=== PATIENT | female | born 1945 | race Hispanic/Latino ===

== ENCOUNTER 2018-03-23 13:12 | Outpatient (CLI) | payer OTHER | END 2018-03-23 13:13 | disposition home or self-care (01) | LOC: LABHHL 13:12 | PROVIDERS: ATTEND Surgery | DX: N63.20 Unspecified lump in the left breast, unspecified quadrant (principal) | CPT/HCPCS: 88305; 88361 ==

== ENCOUNTER 2018-04-16 10:22 | Outpatient (CLI) | payer MEDICARE ==
--- NOTE | 2018-04-17 08:56 | Magnetic Resonance Report ---
BILATERAL BREAST MRI WITHOUT AND WITH CONTRAST: 04/16/18 10:22:00 CLINICAL: Newly diagnosed left breast cancer. Status post left ultrasound guided needle biopsy on 03/23/18 with pathologic diagnosis of invasive carcinoma NOS Christy grade III. COMPARISON:03/07/18 and 03/19/18 outside mammograms. TECHNIQUE: Axial 1.0-mm T1 without, axial high resolution 2.0-mm T2 and axial 1.0-mm dynamic Vibrant high-resolution postcontrast T1 fat saturation sequences on a 1.5 Merline magnet. The examination was performed with an 8 channel dedicated Sentinelle breast coil. Post processing with CAD and subtraction was performed on an [id number] workstation. 16.0 cc of Multihance was injected without incident for the contrast portion of the exam. Consent was obtained prior to the administration of the contrast. FINDINGS: Right: Minimal background parenchymal enhancement. No mass or suspicious enhancement. No suspicious right axillary or right internal mammary lymph nodes. Left: Minimal background parenchymal enhancement. The known cancer with a hydro-anila biopsy clip is an irregular enhancing mass at 5 o'clock 5.8 cm from the nipple measuring 11.8 x 9.2 x 6.9 mm. It demonstrates heterogeneous enhancement with mixed kinetics, 280% peak enhancement, 12% type I persistent 40% type II plateau and 48% type III washout. No other mass or suspicious enhancement. No suspicious left axillary or left internal mammary lymph nodes. IMPRESSION: Known left breast cancer and no additional suspicious lesion of either breast. No suspicious lymph nodes. RIGHT BI-RADS 1 -- Negative LEFT BI-RADS 6 -- Known Cancer
== END 2018-04-16 10:23 | disposition home or self-care (01) ==
LOC: SPVIMAG 10:22
PROVIDERS: ATTEND Surgery
DX: C50.912 Malignant neoplasm of unspecified site of left female breast (principal); I10 Essential (primary) hypertension; F41.9 Anxiety disorder, unspecified; Z90.49 Acquired absence of other specified parts of digestive tract; Z98.51 Tubal ligation status; Z95.1 Presence of aortocoronary bypass graft
CPT/HCPCS: A9577; C8908; 77059

== ENCOUNTER 2018-04-24 13:09 | Outpatient (CLI) | payer MEDICARE, OTHER ==
--- NOTE | 2018-04-24 18:53 | Cat Scan Report ---
FINAL REPORT PROCEDURE: CT CHEST WO CON TECHNIQUE: Computerized axial tomography of the chest was performed without contrast material. This study is performed without intravenous contrast and the sensitivity for pathology, including neoplasms, adenopathy, abscess, pulmonary embolism and aortic dissection, is reduced. HISTORY: LEFT BREAST CANCER COMPARISON: No prior studies are available for comparison. TECHNICAL QUALITY: Satisfactory. FINDINGS: Pericardium: No evidence of pericardial effusion. Thoracic aorta: Atherosclerotic changes are visualized. No aneurysm is seen. Coronary arteries: Are partially calcified indicating atherosclerotic disease. Mediastinum and hilar regions: Nonspecific subcentimeter lymph nodes are visualized. No pathologically enlarged lymph nodes or masses are identified. Sternotomy wires are visualized. There has been previous thoracotomy. Moderate-size hiatal hernia is present. Lung Ziegler: Interstitial markings in the periphery minimally increased. I suspect there is minimal peripheral fibrosis. No acute infiltrates, masses or effusions are identified. Upper abdomen: No acute or focal abnormalities are seen. Gallbladder is surgically absent. Other: No suspicious bony lesions are identified. IMPRESSION: Prior thoracotomy. Mild peripheral fibrosis suspected. No infiltrates or masses are identified. Atherosclerosis coronary arteries. Moderate size hiatal hernia visualized..
--- NOTE | 2018-04-24 19:18 | Cat Scan Report ---
FINAL REPORT PROCEDURE: CT NECK WO CON TECHNIQUE: Computerized tomography of the soft tissue neck was performed without contrast material. This study is performed without intravascular contrast material and its sensitivity for pathology, including neoplasms, inflammation, abscess, free fluid, thrombosis, and arterial dissection, is reduced compared with a contrast enhanced study. HISTORY: LEFT BREAST CANCER COMPARISON: No prior studies are available for comparison. FINDINGS: Calcifications are visualized in the carotid arteries bilaterally indicating atherosclerotic disease. The thyroid gland is not clearly visualized and may be surgically absent or markedly atrophy. The larynx showed no abnormalities. The epiglottis is normal in appearance. Prevertebral soft tissues are unremarkable. The submandibular glands and parotid glands are unremarkable. Parapharyngeal spaces are symmetric. Nonspecific subcentimeter lymph nodes are scattered in the right and left side of the neck. These do not appear to be pathologically enlarged. Degenerative disc changes are visualized in the cervical spine. There is posterior osteophytic spurring overlying a disc bulge C6-C7 greater to the right than the left. This obscures the anterior epidural space and may be resting on the anterior surface of the cord without cord without deformity. At the C5-C6 level there is diffuse posterior osteophytic spurring overlying a disc bulge obscuring the anterior epidural space. I cannot exclude minimal diffuse cord compression. There is mild posterior osteophytic spurring at the C4-5 level slightly greater to the right than the left without cord compression or spinal stenosis. There is mild to moderate facet arthritis greater on the right than the left. No definite lytic or blastic lesions are seen that would suggest metastatic disease. IMPRESSION: Atherosclerosis carotid arteries. Thyroid gland is not visualized and may have been previously resected or is markedly atrophied. No pathologically enlarged lymph nodes are identified. Degenerative disc changes are present in the cervical spine greatest at C5-C6-C6-C7 as described above. No definite lytic or blastic lesions are identified.
== END 2018-04-24 13:10 | disposition home or self-care (01) ==
LOC: CT 13:09
PROVIDERS: ATTEND Radiology Radiation Oncology
DX: C50.512 Malignant neoplasm of lower-outer quadrant of left female breast (principal); I65.29 Occlusion and stenosis of unspecified carotid artery; M50.323 Other cervical disc degeneration at C6-C7 level; I10 Essential (primary) hypertension; F41.9 Anxiety disorder, unspecified
CPT/HCPCS: 70490; 71250

== ENCOUNTER 2018-05-07 07:02 | Day surgery (SDC) | payer MEDICARE, OTHER ==
[2018-05-07] MEDS ORDERED: XYLOCAINE 1% 20 mL ONE ×2 (08:23→09:56)
[2018-05-07 08:26] LABS: Basophils % (Auto) 0.6 % (0.0-1.8); Eosinophils # (Auto) 0.2 K/mm3 (0.0-0.4); Eosinophils % (Auto) 2.8 % (0.0-4.3); Hematocrit 35.7 % (30.3-42.9); Hemoglobin 11.8 gm/dl (10.1-14.3); Lymphocytes % (Auto) 15.4 % (13.4-35.0); Mean Corpuscular HGB Conc 33 % (30-34); Mean Corpuscular Hemoglobin 28 pg (28-32); Mean Corpuscular Volume 84 fl (79-97); Monocytes # (Auto) 0.5 K/mm3 (0.0-0.8); Monocytes % (Auto) 7.5 % (0.0-7.3); Platelet Count 192 K/mm3 (140-440); Red Blood Count 4.24 M/mm3 (3.65-5.03); Red Cell Distribution Width 15.9 % (13.2-15.2)
[2018-05-07] MEDS ORDERED: XYLOCAINE MPF 2% ONE (08:32)
[2018-05-07] MEDS ORDERED: ZOFRAN ONE (08:32)
[2018-05-07] MEDS ORDERED: DILAUDID ONE (08:32)
[2018-05-07] MEDS ORDERED: DIPRIVAN 10 MG/ML IV ONE (08:33)
[2018-05-07 08:40] LABS: Alanine Aminotransferase 23 units/L (7-56); BUN/Creatinine Ratio 26; Blood Urea Nitrogen 18 mg/dL (7-17); Calcium 9.2 mg/dL (8.4-10.2); Hemolysis Index 5
[2018-05-07] MEDS ORDERED: DILAUDID IV PRN (08:53)
[2018-05-07] MEDS ORDERED: ZOFRAN IV PRN (08:53)
--- NOTE | 2018-05-07 08:53 | Procedure Note ---
Date of procedure: 05/07/18 Pre-op diagnosis: lt breast lesion Post-op diagnosis: same Procedure: needle loc Findings: bx marker Anesthesia: local Surgeon: MYRANDA REGAN Estimated blood loss: none Pathology: none Condition: stable Disposition: same day
--- NOTE | 2018-05-07 08:54 | Anesthesia Day of Surgery ---
Anesthesia Day of Surgery - Day of Surgery Patient Examined: Yes Patient H&P Reviewed: Yes Patient is NPO: Yes
--- NOTE | 2018-05-07 08:55 | Anesthesia Consultation ---
Anesthesia Consult and Med Hx Date of service: 05/07/18 - Airway Anesthetic Teeth Evaluation: Good ROM Head & Neck: Adequate Mental/Hyoid Distance: Adequate Mallampati Class: Class II Intubation Access Assessment: Probably Good - Pulmonary Exam CTA: Yes - Cardiac Exam Cardiac Exam: RRR - Pre-Operative Health Status ASA Pre-Surgery Classification: ASA3 Proposed Anesthetic Plan: General (Ga with LMA ok, HTN, DM, GERD- controlled) - Pulmonary Hx Smoking: No - Cardiovascular System Hx Hypertension: Yes (21 YEARS) Hx Heart Attack/AMI: Yes (2001) Hx Valvular Heart Disease: Yes Hx Heart Murmur: Yes - Central Nervous System Hx Psychiatric Problems: No - Endocrine Hx Hypothyroidism: Yes - Other Systems Hx Alcohol Use: No Hx Substance Use: No Hx Cancer: Yes
[2018-05-07] MEDS ORDERED: VERSED IV NR (09:00)
[2018-05-07] MEDS ORDERED: LACTATED RINGERS 1,000 ML IV SCH (09:00)
[2018-05-07] MEDS ORDERED: ePHEDrine SULFATE ONE (09:03)
--- NOTE | 2018-05-07 09:44 | Mammography Report ---
Left breast needle localization: The patient presents with a marker in the inferolateral left breast. A lateral approach was utilized using mammographic grid technique. The skin was cleansed and 1% lidocaine used for local anesthesia. A 3 cm Jean Baptiste needle was placed with its position confirmed with mammography. A wire was then introduced with removal of the needle and additional mammography to confirm positioning of the wire. No complications encountered.
[2018-05-07] MEDS ORDERED: MARCAINE 0.5% 30 ML INFILTRATI ONE (09:46)
[2018-05-07] MEDS ORDERED: DECADRON ONE ×2 (09:47→12:37)
[2018-05-07] MEDS ORDERED: MARCAINE 0.25% INFILTRATI ONE ×2 (09:56→11:42)
[2018-05-07] MEDS ORDERED: ANCEF/STERILE WATER 2 GM/20 ML IV NR (10:00)
--- NOTE | 2018-05-07 10:22 | Short Stay Summary ---
Short Stay Documentation Date of service: 05/07/18 - History H&P: obtained from office - Allergies and Medications Current Medications: Allergies metronidazole Allergy (Verified 05/04/18 13:10) CAMPOS clarithromycin [From Biaxin] Adverse Reaction (Verified 05/04/18 13:10) Swelling clopidogrel bisulfate [From Plavix] Adverse Reaction (Verified 05/04/18 13:10) Itching Home Medications Medication Instructions Recorded Confirmed Last Taken Type Insulin Glargine,Hum.rec.anlog 25 unit SQ QHS 05/04/18 05/07/18 05/06/18 21:30 History [Basaglar Kwikpen U-100] Levothyroxine [Synthroid] 112 mcg PO QAM 05/04/18 05/07/18 05/06/18 History Nebivolol HCl [Bystolic] 20 mg PO DAILY 05/04/18 05/07/18 05/06/18 21:30 History Pantoprazole [Protonix TAB] 40 mg PO DAILY 05/04/18 05/04/18 05/07/18 06:30 History Sertraline [Zoloft] 100 mg PO QDAY 05/04/18 05/04/18 05/07/18 06:30 History Simvastatin [Zocor] 40 mg PO DAILY 05/04/18 05/07/18 05/06/18 History Valsartan [Diovan] 160 mg PO QDAY 05/04/18 05/04/18 05/07/18 06:30 History amLODIPine [Norvasc] 5 mg PO DAILY 05/04/18 05/04/18 05/07/18 06:30 History glipiZIDE [Glucotrol] 10 mg PO BID 05/04/18 05/07/18 05/06/18 History metFORMIN [Glucophage] 500 mg PO BID 05/04/18 05/07/18 05/06/18 History Active Medications Cefazolin Sodium (Ancef/Sterile Water 2 Gm/20 Ml) 2 gm IV PREOP NR Stop: 05/07/18 23:59 Hydromorphone HCl (Dilaudid) 0.5 mg IV Q10MIN PRN PRN Reason: Pain , Severe (7-10) Stop: 05/07/18 18:00 Lactated Ringer's (Lactated Ringers) 1,000 mls @ 100 mls/hr IV DIRECT RAFAELA Last Admin: 05/07/18 09:10 Dose: 100 mls/hr Midazolam HCl (Versed) 2 mg IV PREOP NR Stop: 05/07/18 23:59 Ondansetron HCl (Zofran) 4 mg IV ONCE PRN PRN Reason: Nausea And Vomiting Stop: 05/07/18 18:00 - Brief post op/procedure progress note Date of procedure: 05/07/18 Pre-op diagnosis: Left breast cancer of the lower outer quadrant Post-op diagnosis: same Procedure: Left needle localization partial mastectomy with SLNB Anesthesia: GETA Findings: Left partial mastectomy with clip present; 1 SLN Surgeon: CAROLINE BENOIT Estimated blood loss: minimal Pathology: list (left partial mastectomy, SLNx1) Specimen disposition: to lab Condition: stable - Disposition Condition at discharge: Good Disposition: DC-01 TO HOME OR SELFCARE Short Stay Discharge Plan Activity: other (no heavy lifting) Diet: regular Wound: other (keep incision clean and dry; may shower in 24 hours; no baths, pools or lakes; do not rub or scrub incision; wear breast binder) Follow up with: FORTINO LOPEZ MD [Primary Care Provider] - 7 Days CAROLINE BENOIT MD [Staff Physician] - 7 Days Prescriptions: HYDROcodone/APAP 5-325 [[place] 5/325] 1 each PO Q6HR PRN #30 tablet PRN Reason: Pain
[2018-05-07] MEDS ORDERED: NACL P/F VIAL (10 ML) 10 ML ONE (10:47)
[2018-05-07] MEDS ORDERED: METHYLENE BLUE ONE (10:47)
[2018-05-07] MEDS ORDERED: WATER FOR IRRIG STERILE IR ONE (11:41)
[2018-05-07] MEDS ORDERED: XYLOCAINE 1% 20 mL INFILTRATI ONE (11:41)
[2018-05-07] MEDS ORDERED: ANTIBIOTIC OINT TP ONE ×2 (12:17→15:05)
--- NOTE | 2018-05-07 12:48 | Operative Report ---
Operative Report Operative Report: Date of Service: May 07, 2018 Preoperative diagnosis: Left breast cancer of the lower outer quadrant Postoperative diagnosis: Same Procedure: Left needle localization partial mastectomy of the upper outer quadrant and SLNB Surgeon: Kimi Elder MD Anesthesia: General Findings: Left wire and clip present within radiograph specimen; x1 SLN Complications: None EBL: Minimal Disposition: PACU in good condition Indications for operative procedure: This is a 72year old lady with newly diagnosed left breast cancer of the lower outer quadrant, Stage I [id number] ER/ ME positive. Recommendations are to proceed with left breast conservation. Patient wished to proceed with breast conservation. She has a history of lymphoma and treated with chemoradiation therapy. She met with medical oncology and radiation oncology as well. Procedure in detail: The patient was taken to radiology for wire placement for localization known area of cancer. Patient was then taken to the operating room. Gen. anesthesia was administered. The left nipple was injected with radioisotope and 1 cc of saline with blue dye. The left breast and axilla were prepped and draped in the normal sterile operative fashion. The wire was identified. Timeout was performed. Gamma probe was inserted into the axilla. Axillary tissues were slightly fibrotic and pale-history radiation. The area of hot spot was identified. A left axillary incision was made with a 15 blade knife with dissection taken down to the subcutaneous tissues. The axillary fascia was opened with the Bovie cautery. 1 SLN was identified. All remaining counts were less than 10% of the highest count. Lymph node was sent to pathology for permanent processing. Hemostasis was obtained in the left axillary cavity. Axillary cavity was appropriately irrigated and suctioned. The axillary cavity was anesthetized with 1% lidocaine mixed with quarter percent Marcaine. Hemostasis was noted. Axillary fascia was approximated and closed using interrupted 3-0 Vicryl and the skin brought together and closed using a running 4-0 Monocryl followed by skin affix. Attention was then taken towards the left breast. A lower outer breast incision was made with a 15 blade knife and dissection taken down to subcutaneous tissues. First began raising of the lateral flap with removal of the wire from the skin with dissection take down to the pectoralis muscle, followed by raising of the medial flap, superior flap and inferior flap with all flaps taken down to the pectoralis muscle. Ultrasound was used to verify area of cancer. The breast area of concern was appropriately removed posteriorly from the pectoralis muscle with the aid of the Bovie cautery. The wire was not encountered. Specimen was marked and then sent to pathology and radiology; radiograph specimen with wire and clip present. Breast cavity was irrigated and hemostasis was obtained. The breast cavity was anesthetized with 1% lidocaine mixed with quarter percent Marcaine. The posterior deep breast tissues were approximated and closed using interrupted 3-0 Vicryl. The subcutaneous tissues were approximated and closed using interrupted 3-0 Vicryl followed by closing of the skin with a running 4-0 Monocryl and skin affix. The patient tolerated surgery very well and she was awaken from anesthesia without any complication and transported to PACU in good condition.
--- NOTE | 2018-05-07 15:09 | Mammography Report ---
Operative specimen mammogram: A single tissue specimen is submitted that contains the targeted marker and localizing wire.
[2018-05-07 17:10] VITALS: BP 94/61
== END 2018-05-07 15:20 | disposition home or self-care (01) ==
LOC: OR 07:02
PROVIDERS: ATTEND Surgery
DX: D05.12 Intraductal carcinoma in situ of left breast (principal); I10 Essential (primary) hypertension; E78.00 Pure hypercholesterolemia, unspecified; K21.9 Gastro-esophageal reflux disease without esophagitis; E03.9 Hypothyroidism, unspecified; I25.2 Old myocardial infarction; Z79.4 Long term (current) use of insulin; Z79.899 Other long term (current) drug therapy; Z88.8 Allergy status to other drugs, medicaments and biological substances; Z88.1 Allergy status to other antibiotic agents; Z95.1 Presence of aortocoronary bypass graft; Z90.49 Acquired absence of other specified parts of digestive tract; Z87.442 Personal history of urinary calculi; Z98.51 Tubal ligation status; Z98.42 Cataract extraction status, left eye; Z98.41 Cataract extraction status, right eye; Z98.891 History of uterine scar from previous surgery
CPT/HCPCS: 19281; 19302; 36415; 76098; 78800; 80053; 82962; 85025; 88305; 88307; 88333; 88342; A9541; J0690; J1100; J1170; J2405; J2704; J7120; Q9968; J2250

== ENCOUNTER 2018-10-30 12:49 | Outpatient (CLI) | payer MEDICARE ==
--- NOTE | 2018-10-30 13:35 | Mammography Report ---
LEFT DIGITAL DIAGNOSTIC MAMMOGRAM WITH CAD: 10/30/18 12:49:00 CLINICAL: Breast cancer survivor status post left partial mastectomy 05/07/18. COMPARISON:03/23/18 FINDINGS: The breast is heterogeneously dense, which may obscure small masses.Lower-outer postsurgical scar. Mild skin thickening of the breast is not significantly changed compared to the last exam. Numerous scattered benign calcifications. No mass architectural distortion or suspicious calcifications. IMPRESSION: No mammographic evidence of malignancy. BI-RADS CATEGORY: 2 -- Benign RECOMMENDATION: Routine mammographic screening. ACR BI-RADS MAMMOGRAPHIC CODES: 0 = Needs additional imaging evaluation; 1 = Negative; 2 = Benign; 3 = Probably benign; 4 = Suspicious; 5 = Malignant; 6 = Known biopsy-proven malignancy COMMENT: 1. Dense breast tissue, i.e., adenosis, fibrocystic changes, etc., may obscure an underlying neoplasm. 2. Approximately 10% of cancers are not detected with mammography. 3. A negative mammography report should not delay biopsy if a clinically suspicious mass is present. COMMENT: Patient follow-up letters are generated via our [place] [employer] Nurse Navigator application.
== END 2018-10-30 12:50 | disposition home or self-care (01) ==
LOC: SPVWC 12:49
PROVIDERS: ATTEND Surgery
DX: C50.912 Malignant neoplasm of unspecified site of left female breast (principal); E78.00 Pure hypercholesterolemia, unspecified; I10 Essential (primary) hypertension; K21.9 Gastro-esophageal reflux disease without esophagitis; E03.9 Hypothyroidism, unspecified; Z90.89 Acquired absence of other organs; Z90.49 Acquired absence of other specified parts of digestive tract

== ENCOUNTER 2018-11-20 12:16 | Outpatient (CLI) | payer MEDICARE ==
--- NOTE | 2018-11-20 16:23 | Mammography Report ---
BONE DEXA:11/20/18 12:16:00 CLINICAL: Postmenopausal and personal history of left breast cancer and Hodgkin's lymphoma. On aromatase inhibitor. No comparison. TECHNIQUE: Two site bone DEXA performed on an HoloCubby[employer] scanner. FINDINGS: The average BMD of the lumbar spine L1-L4 is 1.113g/cm squared with a T-score of +0.6 and a Z-score of +2.9. The average BMD of the left hip is 1.002g/cm squared with a T-score of +0.5 and a Z-score of +2.2. IMPRESSION: WHO classification: Normal with average fracture risk based on the spine and left measurements. RECOMMENDATION: Clinical correlation and routine screening. DEFINITIONS: BMD = Bone Mineral Density T-score = BMD related to mean peak bone mass of young adult (mean expressed in Standard Deviation) Z-score = Age matched BMD expressed in SD World Health Organization (WHO) Diagnostic Criteria Normal T-score > -1 SD Osteopenia T-score between -1 and -2.4 SD Osteoporosis T-score -2.5 SD or below NOTE: BMD is not the only risk factor for fracture. One should also consider factors such as the patient's age, risk of falling, previous osteoporotic fracture, family history of osteoporotic fractures, current smoker, and low body weight. Z-scores are not calculated if >80 years of age.
== END 2018-11-20 12:17 | disposition home or self-care (01) ==
LOC: SPVWC 12:16
PROVIDERS: ATTEND Internal Medicine Hematology & Oncology
DX: C50.512 Malignant neoplasm of lower-outer quadrant of left female breast (principal); C81.70 Other Hodgkin lymphoma, unspecified site; I25.10 Atherosclerotic heart disease of native coronary artery without angina pectoris; E11.9 Type 2 diabetes mellitus without complications; I10 Essential (primary) hypertension; E78.00 Pure hypercholesterolemia, unspecified; E03.9 Hypothyroidism, unspecified; Z85.71 Personal history of Hodgkin lymphoma; Z78.0 Asymptomatic menopausal state
CPT/HCPCS: 77080

== ENCOUNTER 2019-02-19 12:50 | Outpatient (CLI) | payer MEDICARE ==
--- NOTE | 2019-02-19 13:30 | Mammography Report ---
BILATERAL DIGITAL SCREENING MAMMOGRAM with CAD : 02/19/19 12:50:00 CLINICAL: Routine screening.Breast cancer survivor status post left partial mastectomy 05/07/18 COMPARISON:10/30/18 left mammogram and 03/23/18 bilateral mammogram. FINDINGS: The breasts are heterogeneously dense, which may obscure small masses.Numerous bilateral scattered benign calcifications. Mild left lower outer postsurgical scar. Stable mild skin thickening of the left breast. No mass, architectural distortion or suspicious calcifications. IMPRESSION: No mammographic evidence of malignancy. BI-RADS CATEGORY: 2 -- Benign RECOMMENDATION: Routine mammographic screening in one year. COMMENT: Patient follow-up letters are generated by our [employer] application.
== END 2019-02-19 12:51 | disposition home or self-care (01) ==
LOC: SPVWC 12:50
PROVIDERS: ATTEND Surgery
DX: Z12.31 Encounter for screening mammogram for malignant neoplasm of breast (principal); E78.00 Pure hypercholesterolemia, unspecified; E03.9 Hypothyroidism, unspecified; K21.9 Gastro-esophageal reflux disease without esophagitis; Z90.49 Acquired absence of other specified parts of digestive tract
CPT/HCPCS: 77067

== ENCOUNTER 2021-02-25 10:38 | Outpatient (CLI) | payer MEDICARE ==
--- NOTE | 2021-02-25 13:11 | Mammography Report ---
DIGITAL SCREENING MAMMOGRAM WITH CAD, 02/25/2021 CLINICAL INFORMATION / INDICATION: Routine screening mammography. SCREENING MAMMO TECHNIQUE: Digital bilateral 2D mammography was obtained in the craniocaudal and mediolateral obliqu e projections. This examination was interpreted with the benefit of Computer-Aided Detection analysis . COMPARISON: 02/09/2016 through 02/25/2020. FINDINGS: Breast Density: There are scattered areas of fibroglandular density. No dominant mass, suspicious calcifications, or architectural distortion in either breast. There are numerous benign scattered calcifications bilaterally. Left breast scarring is again noted. No new abnormality is seen. IMPRESSION: No mammographic evidence of malignancy. Follow up recommendation: Routine yearly BI-RADS Category 2: Benign. A "normal" or negative report should not discourage follow up or biopsy of a clinically significant f inding. A written summary of these findings will be mailed to the patient. The patient will be entered into a mammography reporting system which will generate a reminder letter for the patient's next appointmen t at the appropriate interval. The [employer] recommends yearly mammograms starting at age 40 and continuing as l amandeep as a woman is in good health. Breast MRI is recommended for women with an approximate 20-25% or greater lifetime risk of breast cancer, including women with a strong family history of breast or ova andrew cancer or who have been treated for Hodgkin's disease. Signer Name: Terrell Everett MD Signed: 02/25/2021 1:06 PM Workstation Name: [id number]
== END 2021-02-25 10:39 | disposition home or self-care (01) ==
LOC: SPVWC 10:38
PROVIDERS: ATTEND Surgery
DX: Z12.31 Encounter for screening mammogram for malignant neoplasm of breast (principal)
CPT/HCPCS: 77067